=== PATIENT | male | born 1990 | race Caucasian/White ===

== ENCOUNTER 2020-05-18 11:33 | Emergency (ER) | payer OTHER ==
[2020-05-18] MEDS ORDERED: IBUPROFEN600 MG PO (16:10)
== END 2020-05-18 16:26 | disposition home or self-care (01) ==
LOC: ER1 11:33
DX: S83.91XA Sprain of unspecified site of right knee, initial encounter (principal); S82.111A Displaced fracture of right tibial spine, initial encounter for closed fracture; F17.210 Nicotine dependence, cigarettes, uncomplicated; W11.XXXA Fall on and from ladder, initial encounter; Y92.009 Unspecified place in unspecified non-institutional (private) residence as the place of occurrence of the external cause
CPT/HCPCS: 29530; 73564; 73590; 73700; 99284